=== PATIENT | female | born 1960 | race African-American/Black ===

== ENCOUNTER → 2018-07-09 | Outpatient (CLI) | payer OTHER ==
[~2018-07-09] MED LIST: ASPIRIN325 PO; ATORVASTATIN CA80 MG PO; CELEXA 20 MG TA20 M1 PO; HUMALOG100 UNIT/1 SUBQ; LISINOPRIL2.5 MG PO; NOVOLOG100 UNIT/1 SUBQ; OXYCODONE-ACET1 EACH; TOPROL XL25 MG PO; TUMS PO; VITAMIN D3400 UNIT PO
== END ==
LOC: NUC 08:24
DX: I25.10 Atherosclerotic heart disease of native coronary artery without angina pectoris (principal); E11.9 Type 2 diabetes mellitus without complications; I10 Essential (primary) hypertension; E78.5 Hyperlipidemia, unspecified; Z87.891 Personal history of nicotine dependence